=== PATIENT | male | born 1980 | race Caucasian/White ===

== ENCOUNTER 2017-06-13 10:06 | Emergency (ER) | payer BC, OTHER ==
[~2017-06-13] VITALS: Ht 188 cm; Wt 154.2 kg
[2017-06-13 10:49] VITALS: BP 148/79
[2017-06-13] MEDS ORDERED: LIDOCAINE 1% HCL (LOCAL ANESTH.) INJ 20ML MDV ID ONE (11:00)
[2017-06-13] MEDS ORDERED: NEOMYCIN-BACITRACIN-POLYM UNITDOSE PKG TOP OINT TOP ONE (11:00)
== END 2017-06-13 11:58 | disposition home or self-care (01) ==
LOC: ER 10:06
DX: S61.011A Laceration without foreign body of right thumb without damage to nail, initial encounter (principal); W26.9XXA Contact with unspecified sharp object(s), initial encounter; Y93.89 Activity, other specified; Y99.0 Civilian activity done for income or pay; Y92.69 Other specified industrial and construction area as the place of occurrence of the external cause
CPT/HCPCS: 12002; 73140; 99284; J2001